=== PATIENT | female | born 1960 | race Caucasian/White ===

== ENCOUNTER → 2016-10-05 | Outpatient (CLI) | payer OTHER ==
[~2016-10-05] MED LIST: ACET500C35; ACT30 PO; ALBU1AER9 INH; ALL180 PO; ASPEC81 PO; ATOR-26 PO; BACL10TA PO; BIMA0.01 OP; BIOTPOW17 PEG; BRIM0.2S OPB; BRIN1SUS OPL; CYCL-376 PO; CZR25 PO; FENO145T26 PO; FLUO20CA35 PO; FLUT0.15 INTNAS; GLCSR500 PO; HMLI SC; INSU1INJ7 SC; LANS15CA6 PO; LEVO1TAB50 PO; MAGN400T6 PO; MELO7.5T5 PO; METO25TA3 PO; PHEN37.585 PO; SNG10 PO
--- NOTE | 2016-10-05 11:01 | DIAGNOSTIC IMAGING REPORT ---
FUSION CT SINUSES W/O HISTORY: J32.9 Chronic sinusitis PATIENT WITH CONTINUED SINONASAL SYMPTOMS TECHNIQUE: Multiaxial CT images of the sinuses were performed and reformatted in the coronal plane without the use of intravenous contrast. Fusion CT protocol was obtained. COMPARISON STUDY: Brain MRI 02/13/2011. FINDINGS: The frontal sinuses, frontoethmoidal recesses, left ethmoid air cells, sphenoid sinuses, and left mastoid air cells are clear. Single partially opacified right posterior ethmoid air cell. The remaining right ethmoid air cells are clear. There is near complete opacification of the right mastoid air cells. No erosive changes seen within the right mastoid air cells. Mild right anterior nasal septum deviation with a tiny right-sided nasal spur. The lamina papyracea and orbital floors are intact. The pterygopalatine fossa are well-maintained. No evidence for carotid canal dehiscence. Trace fluid within the right maxillary sinus. Small to moderate fluid level within the left maxillary sinus. There is mild mucosal thickening within the bilateral maxillary sinuses. Partial opacification of the left ethmoid infundibulum. The right ostiomeatal unit is patent. The cribriform plates and ethmoid roofs are symmetric. The anterior clinoids and ruben lexi are not pneumatized. The visualized brain parenchyma and orbits are unremarkable. IMPRESSION: 1. Acute on chronic bilateral maxillary sinusitis as described above. 2. Right mastoid effusion. This is better appreciated on the same day temporal bone CT. 3. Mild right nasal septal deviation with a tiny right-sided nasal spur. 4. The right ostiomeatal unit is patent. There is partial opacification of the left ethmoid infundibulum. Electronically signed by: Hiro Pagan M.D. 10/05/2016 10:59 AM Dictated Date/Time: 10/05/2016 10:49 AM
--- NOTE | 2016-10-05 16:05 | DIAGNOSTIC IMAGING REPORT ---
CT OF THE TEMPORAL BONES WITHOUT CONTRAST CLINICAL HISTORY: Conductive right-sided hearing loss. Granulation tissue in middle ear. TECHNIQUE: Axial images of the temporal bones were obtained without IV contrast. Coronal reformats were viewed. The sinus CT will be reported separately. COMPARISON STUDY: MRI of the brain February 13, 2011. FINDINGS: There is a large right mastoid effusion. There is a small amount of fluid or soft tissue within the right middle ear, adjacent to the ossicles, including within Prussak's space. The ossicles are intact. The scutum is intact. Equivocal blunting of the right scutum is similar in appearance to the left scutum and is therefore likely within normal limits. There is no bony erosion. Semicircular canals are intact. The adjacent soft tissues are unremarkable. The left mastoid air cells are clear. The left ossicles are intact. There is no fluid within the left middle ear. The tegmen tympani are intact. The sinuses will be reported separately but there is a moderate-sized air-fluid level within left maxillary sinus with secretions within the right maxillary sinus. A small amount of secretions are noted within the ethmoid sinuses as well. Orbits are unremarkable. IMPRESSION: 1. Right mastoid effusion. Small amount of fluid or less likely soft tissue within the right middle ear. Fluid is favored. A small cholesteatoma could appear similar but is considered less likely given the lack of bony erosion. 2. Clear left mastoid air cells. 3. Bilateral maxillary sinusitis, left greater than right. Electronically signed by: Luiz Erazo M.D. 10/05/2016 4:03 PM Dictated Date/Time: 10/05/2016 10:32 AM
== END | disposition home or self-care (01) ==
LOC: C.CTS 09:58
DX: J32.9 Chronic sinusitis, unspecified (principal); H90.A11 Conductive hearing loss, unilateral, right ear with restricted hearing on the contralateral side

== ENCOUNTER → 2017-01-24 | Outpatient (CLI) | payer OTHER ==
[2017-01-24 14:36] LABS: BASO % 0.7 %; BASO ABS # 0.05 K/uL (0-0.2); COMPLETE YES; EOS % 3.9 %; HEMATOCRIT 38.6 % (37-47); IG% 0.3 %; LYMPH % 39.7 %; LYMPH ABS # 3.03 K/uL (1.2-3.4); MEAN CELL VOLUME 86.2 fL (80-100); MEAN CORPUSCULAR HGB CONC 31.3 g/dl (32-36); MEAN PLATELET VOLUME 9.9 fL (7.4-10.4); MONO % 9.7 %; NEUT % 45.7 %; PLATELET COUNT 377 K/uL (130-400); RED BLOOD COUNT 4.48 M/uL (4.2-5.4); WHITE BLOOD COUNT 7.63 K/uL (4.8-10.8)
[2017-01-24 14:51] LABS: ALT/SGPT 27 U/L (12-78); AST/SGOT 23 U/L (15-37); BLOOD UREA NITROGEN 17 mg/dl (7-18); BUN/CREATININE RATIO 20.4 (10-20); CARBON DIOXIDE 24 mmol/L (21-32); CHLORIDE 112 mmol/L (98-107); CHOLESTEROL 164 mg/dl (0-200); CREATININE 0.84 mg/dl (0.60-1.20); GLUCOSE 61 mg/dl (70-99); SODIUM 143 mmol/L (136-145); TRIGLYCERIDES 82 mg/dl (0-150); URINE APPEARANCE CLEAR (CLEAR); URINE BILIRUBIN NEG (NEG); URINE COLOR YELLOW; URINE NITRITE NEG (NEG); URINE PH 6.5 (4.5-7.5); URINE SPECIFIC GRAVITY 1.019 (1.000-1.030); UROBILINOGEN NEG (NEG); VERY LOW DENSITY LIPOPROT CALC 16 mg/dl; ZZUR CULT IF INDIC CLEAN CATCH NO
[2017-01-24 14:53] LABS: CALCIUM 9.1 mg/dl (8.5-10.1)
[2017-01-24 14:55] LABS: MANUAL MICROSCOPIC REQUIRED? NO; REVIEW REQ? NO
[2017-01-24 15:02] LABS: ALKALINE PHOSPHATASE 60 U/L (45-117); CHOLESTEROL/HDL RATIO 3.3; HDL CHOLESTEROL 50 mg/dl; LDL CHOLESTEROL CALCULATED 98 mg/dl
[2017-01-24 15:04] LABS: ESTIMATED AVERAGE GLUCOSE 148 mg/dl; HA1C FLAG Normal (Normal)
[2017-01-24 15:31] LABS: RATIO 6.7 mcg/mg (0-30.0)
== END | disposition home or self-care (01) ==
LOC: C.LAB1850 12:19
PROVIDERS: ATTEND Internal Medicine
DX: E11.9 Type 2 diabetes mellitus without complications (principal); E55.9 Vitamin D deficiency, unspecified; E03.9 Hypothyroidism, unspecified; I10 Essential (primary) hypertension; Z11.59 Encounter for screening for other viral diseases; S92.902A Unspecified fracture of left foot, initial encounter for closed fracture; X58.XXXA Exposure to other specified factors, initial encounter

== ENCOUNTER → 2017-02-01 | Outpatient (CLI) | payer OTHER | END | disposition home or self-care (01) | LOC: C.MAMM 15:44 | PROVIDERS: ATTEND Internal Medicine Endocrinology, Diabetes & Metabolism | DX: E55.9 Vitamin D deficiency, unspecified (principal); S92.902A Unspecified fracture of left foot, initial encounter for closed fracture; X58.XXXA Exposure to other specified factors, initial encounter ==

== ENCOUNTER → 2017-04-17 | Outpatient (CLI) | payer OTHER | END | disposition home or self-care (01) | LOC: C.PAPS 17:44 | PROVIDERS: ATTEND Obstetrics & Gynecology | DX: Z12.4 Encounter for screening for malignant neoplasm of cervix (principal); N95.2 Postmenopausal atrophic vaginitis ==

== ENCOUNTER → 2017-04-20 | Outpatient (CLI) | payer OTHER ==
--- NOTE | 2017-04-20 12:56 | MAMMOGRAPHY REPORT ---
BILATERAL DIGITAL SCREENING MAMMOGRAM TOMOSYNTHESIS WITH CAD: 04/20/2017 CLINICAL HISTORY: Routine screening. Patient has no complaints. TECHNIQUE: Breast tomosynthesis in addition to standard 2D mammography was performed. Current study was also evaluated with a Computer Aided Detection (CAD) system. COMPARISON: Comparison is made to exams dated: 02/24/2016 mammogram, 02/04/2015 mammogram, 01/29/2014 rufina mogram, 01/15/2013 mammogram, 01/12/2012 mammogram, and 01/10/2011 mammogram - [facility]. BREAST COMPOSITION: The tissue of both breasts is almost entirely fatty. FINDINGS: No suspicious masses, calcifications, or areas of architectural distortion are noted in ei ther breast. There has been no significant interval change compared to prior exams. Scattered bilater al benign-appearing calcifications are not significantly changed. IMPRESSION: ACR BI-RADS CATEGORY 2: BENIGN There is no mammographic evidence of malignancy. A 1 year screening mammogram is recommended. The pa tient will receive written notification of the results. Approximately 10% of breast cancers are not detected with mammography. A negative mammographic report should not delay biopsy if a clinically suggestive mass is present. Brianne Chicas M.D. /:04/20/2017 12:33:14 Staffing Rn: Krystal Balbuena, [facility] letter sent: Normal 1/2 BI-RADS Code: ACR BI-RADS Category 2: Benign
== END | disposition home or self-care (01) ==
LOC: C.MAMM 09:02
PROVIDERS: ATTEND Obstetrics & Gynecology
DX: Z12.31 Encounter for screening mammogram for malignant neoplasm of breast (principal)

== ENCOUNTER → 2017-06-27 | Outpatient (CLI) | payer OTHER ==
--- NOTE | 2017-06-27 13:06 | DIAGNOSTIC IMAGING REPORT ---
LEFT FOOT CT CT DOSE: 224.97 mGy.cm HISTORY: Left foot pain. Assess for healing fracture. TECHNIQUE: Multiaxial CT images of the left foot were performed and reformatted in the sagittal and coronal plane without the use of contrast. A dose lowering technique was utilized adhering to the principles of ALARA. COMPARISON: None. FINDINGS: There is a healing/chronic transverse fracture through the base of the fifth metatarsal which extends to the intertarsal area. Therefore, this is consistent with a Darby fracture. There is approximately 20-30% bony bridging of the fracture. The remaining fracture remains nonunited. Mild sclerosis and irregularity at the bases of the third and fourth metatarsals which suggests old, healed fractures. No acute fracture or dislocation within the foot. No dislocation. Mild dorsal subcutaneous edema within the midfoot. IMPRESSION: There is a healing/chronic transverse fracture through the base of the fifth metatarsal which demonstrates approximately 20-30% bony bridging. The remaining fracture remains nonunited. Electronically signed by: Hiro Pagan M.D. 06/27/2017 1:04 PM Dictated Date/Time: 06/27/2017 12:59 PM
== END | disposition home or self-care (01) ==
LOC: C.CTS 11:59
PROVIDERS: ATTEND Orthopaedic Surgery Sports Medicine
DX: S92.355D Nondisplaced fracture of fifth metatarsal bone, left foot, subsequent encounter for fracture with routine healing (principal); X58.XXXA Exposure to other specified factors, initial encounter

== ENCOUNTER → 2017-09-07 | Outpatient (CLI) | payer OTHER ==
--- NOTE | 2017-09-07 15:18 | DIAGNOSTIC IMAGING REPORT ---
R SHOULDER MIN 2 VIEWS ROUTINE CLINICAL HISTORY: Right arm weakness. COMPARISON: None FINDINGS: Alignment of the right shoulder is anatomic. There is no fracture or suspicious lesion. There is moderate arthritis of the right acromioclavicular joint and mild arthritis of the glenohumeral joint. IMPRESSION: 1. No acute fracture or dislocation of the right shoulder. 2. Moderate osteoarthritis of the right acromioclavicular joint and mild osteoarthritis of the right glenohumeral joint. Electronically signed by: Luiz Erazo M.D. 09/07/2017 3:17 PM Dictated Date/Time: 09/07/2017 3:16 PM
--- NOTE | 2017-09-07 15:24 | DIAGNOSTIC IMAGING REPORT ---
CERVICAL SPINE 5 VIEWS HISTORY: Numbness. COMPARISON: Cervical spine 09/14/2015. FINDINGS: The cervical spine is visualized from C1 through the superior endplate of T1. There is no fracture. No subluxation. Moderate disc space narrowing at C5-C6, C6-C7. Severe disc space narrowing at C7-T1. This is similar to the prior study. There are endplate osteophytes at the mid to lower cervical spine. Small focal calcification anterior to the odontoid. There is left greater the right mid to lower cervical spine facet degenerative changes. This results in mild right and moderate left neural foraminal narrowing from C5 through T1. Prevertebral soft tissues and the atlantodens interval are intact. IMPRESSION: 1. No fractures or subluxation within the cervical spine. 2. Moderate degenerative changes seen within the mid to lower cervical spine as described above. This is similar to the prior study. Electronically signed by: Hiro Pagan M.D. 09/07/2017 3:22 PM Dictated Date/Time: 09/07/2017 3:18 PM
== END | disposition home or self-care (01) ==
LOC: C.RAD1850 14:53
PROVIDERS: ATTEND Internal Medicine
DX: R29.898 Other symptoms and signs involving the musculoskeletal system (principal); R20.0 Anesthesia of skin; M19.011 Primary osteoarthritis, right shoulder; M50.322 Other cervical disc degeneration at C5-C6 level; M50.323 Other cervical disc degeneration at C6-C7 level; M50.33 Other cervical disc degeneration, cervicothoracic region; M47.812 Spondylosis without myelopathy or radiculopathy, cervical region

== ENCOUNTER → 2017-09-11 | Outpatient (CLI) | payer OTHER ==
--- NOTE | 2017-09-11 13:34 | DIAGNOSTIC IMAGING REPORT ---
CERVICAL WITHOUT CONTRAST CLINICAL HISTORY: 57 years-old Female presenting with Right shoulder painR20.0 [id number] Musculoskeletal system, right-sided neck pain that radiates into the arm, right shoulder pain, tingling down the arms with numbness of fingers intermittently. TECHNIQUE: Multisequence, multiplanar MR imaging of the cervical spine was performed without the use of intravenous contrast. IV contrast: None. COMPARISON: Plain radiographs of the cervical spine from 09/07/2017 and MR of the cervical spine from 08/26/2010. FINDINGS: Localizer images: Unremarkable. Straightening of normal cervical lordosis likely positional and in part degenerative in etiology. Vertebral bodies symmetric normal height, alignment, and bone marrow signal intensity. Mild diffuse disc desiccation no disc heights are relatively maintained with the exception of C7-T1. Disc osteophyte complexes noted to varying degrees from C4-5 through C7-T1. Degenerative changes further detailed below: C2-3: No significant neural foraminal or spinal canal narrowing. C3-4: No significant neural foraminal or spinal canal narrowing. C4-5: No significant neural foraminal or spinal canal narrowing. C5-6: Disc osteophyte complex and uncovertebral hypertrophy result in mild right and moderate left neural foraminal narrowing. Mild effacement of the ventral thecal sac with contouring of the spinal cord. C6-7: Disc osteophyte complex with right greater than left uncovertebral hypertrophy results in moderate right and mild left neural foraminal narrowing. Effacement of the anterior thecal sac and more significantly the right lateral recess with contouring of the spinal cord. Mass effect on the exiting right C7 nerve root. C7-T1: Disc osteophyte complex and uncovertebral hypertrophy result in moderate right and mild left neural foraminal narrowing. Effacement of the right lateral recess and anterior thecal sac with mild contouring of the spinal cord. Mass effect on the exiting right T1 nerve root suspected. Spinal cord maintains normal signal intensity despite contouring of the cord by disc osteophyte complexes. Craniocervical junction normal. No paraspinal muscular edema. IMPRESSION: 1. Multilevel degenerative changes with disc osteophyte complexes from C4-5 through C7-T1. This results in neural foraminal narrowing at C5-6 and C6-7. Further details as above. No evidence of spinal cord impingement. These changes have slightly progressed at C7-T1. Electronically signed by: Raji Tamayo M.D. 09/11/2017 1:33 PM Dictated Date/Time: 09/11/2017 1:23 PM
== END | disposition home or self-care (01) ==
LOC: C.MRIBC 12:00
PROVIDERS: ATTEND Internal Medicine
DX: M50.321 Other cervical disc degeneration at C4-C5 level (principal); M99.41 Connective tissue stenosis of neural canal of cervical region; M25.78 Osteophyte, vertebrae; M25.511 Pain in right shoulder

== ENCOUNTER → 2017-10-30 | Outpatient (CLI) | payer OTHER ==
--- NOTE | 2017-10-30 12:21 | DIAGNOSTIC IMAGING REPORT ---
C-SPINE ROUTINE 4 OR 5 VIEWS CLINICAL HISTORY: 57 years-old Female presenting with Z98.890 H/O cervical spine surgery. TECHNIQUE: Lateral, bilateral oblique, frontal, and open-mouth odontoid views of the cervical spine were obtained. COMPARISON: 09/07/2017. FINDINGS: Normal cervical lordosis. Anterior cervical fixation and discectomy of C5-T1. Interbody spacers noted at these levels. Disc osteophyte complexes evident at C4-5 and the operative levels. No radiographic evidence of fracture or subluxation. No significant posterior bony spurring. Normal predental interval. No prevertebral soft tissue swelling. Mild osseous neural foraminal narrowing may be present on the right at C6-7. Lateral masses of C1 articulate normally with C2. IMPRESSION: 1. Anterior cervical discectomy and fusion of C5-T1. 2. No radiographic evidence of acute osseous injury. 3. Possible mild osseous neural foraminal narrowing on the right at C6-7. Electronically signed by: Raji Tamayo M.D. 10/30/2017 12:19 PM Dictated Date/Time: 10/30/2017 12:17 PM
--- NOTE | 2017-10-30 13:07 | DIAGNOSTIC IMAGING REPORT ---
R RIBS UNILATERAL WITH PA CHEST CLINICAL HISTORY: R07.81 Rib pain on right side pain COMPARISON STUDY: None FINDINGS: Nondisplaced cortical fractures of the costochondral junctions anterior right eighth ninth and 10th ribs. All remaining ribs are unremarkable. The lungs are clear. No evidence pneumothorax. IMPRESSION: Nondisplaced cortical fractures of the costochondral junction anterior right eighth ninth and 10th ribs. No evidence pneumothorax. The above report was generated using voice recognition software. It may contain grammatical, syntax or spelling errors. Electronically signed by: Neal Doran M.D. 10/30/2017 1:06 PM Dictated Date/Time: 10/30/2017 1:04 PM
[2017-10-30 13:26] LABS: HEMOGLOBIN A1C 7.9 % (4.5-5.6)
== END | disposition home or self-care (01) ==
LOC: C.LAB 11:19
PROVIDERS: ATTEND Internal Medicine
DX: E55.9 Vitamin D deficiency, unspecified (principal); E03.9 Hypothyroidism, unspecified; E11.8 Type 2 diabetes mellitus with unspecified complications; Z79.4 Long term (current) use of insulin; Z98.890 Other specified postprocedural states; M43.23 Fusion of spine, cervicothoracic region; S22.41XA Multiple fractures of ribs, right side, initial encounter for closed fracture; X58.XXXA Exposure to other specified factors, initial encounter

== ENCOUNTER → 2018-02-04 | Outpatient (CLI) | payer OTHER ==
--- NOTE | 2018-02-04 14:59 | DIAGNOSTIC IMAGING REPORT ---
MRI CERVICAL WITHOUT CONTRAST CLINICAL HISTORY: HERNIATED CERVICAL DISC RIGHT SHOULDER PAIN. RIGHT ARM WEAKNESS. TECHNIQUE: Sagittal and axial T1, T2 and STIR images were obtained. COMPARISON STUDY: Conventional radiographic study dated to 618, MRI dated 09/11/2017 There are no suspicious areas of marrow replacement. No intrinsic cervical cord lesions are visualized. There is artifact secondary to disc implants at the C 4-5 C5-6 and C6-7 levels C2-3: There is no evidence of disc bulge or focal herniation. There is no spinal or foraminal stenosis. C3-4: There is no evidence of disc bulge or focal herniation. There is no spinal or foraminal stenosis. C4-5: There are no disc bulges or focal herniations. There is no spinal or foraminal stenosis. C5-6 : There are postsurgical changes present. There is a left paracentral disc protrusion with effacement of the thecal sac. There is mild left-sided foraminal narrowing. C6-7: Postsurgical changes are evident. There is slight effacement of the anterior thecal sac. There is right greater than left foraminal narrowing. C7-T1: There are postsurgical changes present. There is moderate right-sided foraminal narrowing. There is mild left-sided foraminal narrowing IMPRESSION: 1. Postsurgical changes the C5-C6, C6-7, and C7-T1 levels 2. Small left paracentral disc protrusion at the C5-6 level with mild left-sided foraminal narrowing 3. Right greater than left foraminal narrowing C6-7 level 4. Moderate right-sided foraminal narrowing at the C7-T1 level. Mild left-sided foraminal narrowing. Electronically signed by: Marlon Nuñez M.D. 02/04/2018 2:58 PM Dictated Date/Time: 02/04/2018 2:46 PM
== END | disposition home or self-care (01) ==
LOC: C.MRI 13:53
PROVIDERS: ATTEND Specialist
DX: M50.20 Other cervical disc displacement, unspecified cervical region (principal); M48.03 Spinal stenosis, cervicothoracic region